=== PATIENT | male | born 1970 | race Caucasian/White ===

== ENCOUNTER → 2019-01-13 | Outpatient (CLI) | payer BC ==
[~2019-01-13] MED LIST: ISOVUE-370 76% 125ML VIAL (Q9967 PER ML) As Ordered ONE
--- NOTE | 2019-01-13 15:18 | REP ---
CT thoracic aortic angiogram: With IV contrast. History: Status post aortic dissection repair. Comparison studies: No comparison exam. Contrast dose: 75 mL of Isovue [address] technique: Helical scanning is acquired and overlapping 1.5 mm and contiguous 3 mm axial images are reformatted. In addition, maximum intensity projection and multiplanar re-formation images are generated in sagittal and coronal imaging projections. Surface rendered 3-D images are acquired and viewed rotationally. CT pulmonary angiographic findings: There is good opacification of the thoracic aorta. Postoperative clips are noted in the anterior mediastinum adjacent to the ascending aorta. The patient appears to be status post ascending aortic graft repair. Great vessel origins are widely patent. The great vessels are tortuous but otherwise intact. There is no evidence of stenosis. No evidence of aortic dissection is seen in the ascending or arch segment of the aorta. There is however an aortic dissection seen in the descending aorta extending caudally from the level of the posterior aortic knob well beyond the takeoff of the left subclavian artery. What appears to be the false channel is seen posteriorly in the descending aorta. The intimal flap and dissection compressed the true lumen significantly at the level of the diaphragmatic hiatus. The true lumen feeds the celiac and superior mesenteric arteries. The dissection flap extends into bilateral renal arteries. There appears to be a tiny accessory renal artery on the left. The kidneys enhance symmetrically. There is no evidence to suggest acute renal infarction. There is however some focal cortical scarring in the upper pole of the right, and to a lesser extent left kidney. The spleen is homogeneously enhancing as well. No liver lesion is visible. There is no evidence of pleural or pericardial effusion. Lung window settings demonstrate a pleural-based 6 mm nodule in the right lower lobe on page 58 of 129 in of series 505 of today's study. No other pulmonary nodule is seen. No infiltrate is noted. Bone window settings demonstrate median sternotomy. Impression: Persistent thoracic aortic dissection distal to the great vessel origins in the descending aorta. Status post ascending aortic graft repair. Distally, the dissection flap extends into both main renal arteries and there is old appearing focal cortical scarring of the upper pole of the right kidney. Minimal upper pole cortical scarring left kidney. There is a 6 mm noncalcified pulmonary nodule in the right lower lobe. Electronically Signed by Vipin Duggan MD 01/13/2019 03:20 P
== END ==
LOC: M RAD 13:16
PROVIDERS: ATTEND Nurse Practitioner Family
DX: Z98.890 Other specified postprocedural states (principal); I71.01 Dissection of thoracic aorta; R91.1 Solitary pulmonary nodule
CPT/HCPCS: 71275; Q9967

== ENCOUNTER → 2019-03-03 | Outpatient (CLI) | payer BC ==
[~2019-03-03] MED LIST changes: +ISOVUE-370 76% 100ML VIAL (Q9967) As Ordered ONE; -ISOVUE-370 76% 125ML VIAL (Q9967 PER ML) As Ordered ONE
--- NOTE | 2019-03-03 16:58 | REP ---
Clinical: Descending thoracic aortic dissection. Technique: Axial contrast enhanced images from the thoracic inlet through the mid abdomen with coronal and sagittal re-formations using 100 ml Isovue 370 intravenous contrast material. Images obtained in maximal arterial enhancement. Comparison: 01/13/2019. Findings: There is history for ascending thoracic aortic repair. There is a type B dissection involving the descending thoracic aorta originating at the distal aspect of the aortic arch beyond the takeoff of the left subclavian artery. The true lumen is decreased in size as compared to the false lumen and appears to significantly compressed along the distal descending aorta through the level of the diaphragmatic hiatus. The false lumen demonstrates element of enhancement. The dissection flap is identified extending into the bilateral main renal arteries and continues caudally beyond the lower aspect of the imaged abdomen. The celiac access and superior mesenteric artery both originate from the true lumen. A small secondary left renal artery is also identified just superior to the main renal artery and originates from the false lumen. Kidneys demonstrate relatively symmetric enhancement although mild atrophy to the right kidney is suspected. Bilateral lung ambrosio demonstrate mild COPD type changes along with minimal left lower lobe scarring. 6 mm noncalcified subpleural nodule in the right lower lobe (image 73) remains unchanged. No acute consolidation, further significant nodule or mass lesion appreciated. No cardiomegaly. No significant adenopathy. Musculoskeletal structures of the thorax demonstrate prior sternotomy and degenerative changes. Limited evaluation of the abdomen demonstrates normal liver, spleen, pancreas, gallbladder, and bilateral adrenal glands. Impression: 1. Type B descending thoracic aortic dissection as described above and without change compared to 01/13/2019. 2. 6 mm noncalcified right lower lobe pulmonary nodule. Electronically Signed by Shravan Gutierrez MD 03/03/2019 04:50 P
== END ==
LOC: M RAD 15:06
PROVIDERS: ATTEND Surgery
DX: I71.01 Dissection of thoracic aorta (principal); J44.9 Chronic obstructive pulmonary disease, unspecified; R91.1 Solitary pulmonary nodule
CPT/HCPCS: 71275; Q9967